=== PATIENT | female | born 1955 | race Hispanic/Latino ===

== ENCOUNTER → 2018-12-09 | Outpatient (CLI) | payer SELFPAY | END | disposition home or self-care (01) | LOC: RAH 08:57 | PROVIDERS: ATTEND Nurse Practitioner Family | DX: N60.11 Diffuse cystic mastopathy of right breast (principal); N60.12 Diffuse cystic mastopathy of left breast | CPT/HCPCS: 76641; 77066 ==

== ENCOUNTER → 2020-05-10 | Outpatient (CLI) | payer SELFPAY | END | disposition home or self-care (01) | LOC: RAH 07:38 | PROVIDERS: ATTEND Nurse Practitioner Family | DX: N60.01 Solitary cyst of right breast (principal); N60.02 Solitary cyst of left breast; N60.19 Diffuse cystic mastopathy of unspecified breast | CPT/HCPCS: 76641; 77066 ==

== ENCOUNTER → 2022-05-02 | Outpatient (CLI) | payer MEDICARE | END | disposition home or self-care (01) | LOC: RAH 13:26 | PROVIDERS: ATTEND Nurse Practitioner Family | DX: R92.8 Other abnormal and inconclusive findings on diagnostic imaging of breast (principal); N60.19 Diffuse cystic mastopathy of unspecified breast; N64.4 Mastodynia | CPT/HCPCS: 77066 ==

== ENCOUNTER → 2022-10-17 | Outpatient (CLI) | payer MEDICARE | END | disposition home or self-care (01) | LOC: RAH 07:47 | PROVIDERS: ATTEND Nurse Practitioner Family | DX: N60.02 Solitary cyst of left breast (principal); N60.01 Solitary cyst of right breast; N64.4 Mastodynia ==

== ENCOUNTER → 2023-05-05 | Outpatient (CLI) | payer MEDICARE | END | disposition home or self-care (01) | LOC: RAH 10:48 | PROVIDERS: ATTEND Nurse Practitioner Family | DX: N60.01 Solitary cyst of right breast (principal); N60.02 Solitary cyst of left breast; R92.2 Inconclusive mammogram; N60.42 Mammary duct ectasia of left breast; N64.4 Mastodynia; N60.19 Diffuse cystic mastopathy of unspecified breast | CPT/HCPCS: 77066 ==

== ENCOUNTER → 2023-06-09 | Outpatient (CLI) | payer MEDICARE | END | disposition home or self-care (01) | LOC: RAH 13:44 | PROVIDERS: ATTEND Nurse Practitioner Family | DX: M81.0 Age-related osteoporosis without current pathological fracture (principal); N95.9 Unspecified menopausal and perimenopausal disorder; M85.88 Other specified disorders of bone density and structure, other site | CPT/HCPCS: 77080 ==

== ENCOUNTER → 2023-08-26 | Outpatient (CLI) | payer OTHER | END | disposition home or self-care (01) | LOC: OIH 11:19 | PROVIDERS: ATTEND Nurse Practitioner Family | DX: Z13.6 Encounter for screening for cardiovascular disorders (principal) | CPT/HCPCS: 75571 ==

== ENCOUNTER → 2024-05-26 | Outpatient (CLI) | payer MEDICARE ==
--- NOTE | 2024-05-27 08:35 | HMCIMG ---
Diagnostic mammogram and bilateral breast ultrasound. HISTORY: DIFFUSE CYSTIC MASTOPATHY,MASTODYNIA COMPARISON: 05/05/2023 TECHNIQUE: Bilateral digital diagnostic mammogram was performed. No additional views were obtained. FINDINGS: Parenchymal density: The breasts are heterogeneously dense, which may obscure small masses. There are no focal masses. There is no evidence of nipple retraction or skin thickening. Bilateral breast ultrasound was performed. Right breast parenchyma appears normal. There are 2 cysts on the left, these include a 1.8 cm cyst in the 1:00 position and a 1 cm cyst in the 2:00 position. There are no solid nodules in either breast. There are no areas of architectural distortion or acoustical shadowing. There are some normal-appearing lymph nodes in both axilla. IMPRESSION: 1. 2 small simple cyst left breast largest is in the 1:00 position measuring 1.8 x 1.9 cm. 2. Otherwise unremarkable bilateral mammogram with bilateral breast ultrasound. The patient was entered into a reminder system with a target due date for their next mammogram. BI-RADS CATEGORY 1: NEGATIVE Recommend monthly self breast exam as well as annual clinical examination. A negative x-ray should not delay biopsy if a dominant or clinically suspicious mass is present, since 8-10% of cancers are not identified by mammography. Dense breasts particularly, may obscure an underlying neoplasm. Some of these may be detected clinically and therefore, clinical examination is an essential part of breast evaluation.
== END | disposition home or self-care (01) ==
LOC: RAH 12:47
PROVIDERS: ATTEND Nurse Practitioner Family
DX: N60.02 Solitary cyst of left breast (principal); N64.4 Mastodynia; N60.19 Diffuse cystic mastopathy of unspecified breast; R92.30 Dense breasts, unspecified; N60.11 Diffuse cystic mastopathy of right breast; N60.12 Diffuse cystic mastopathy of left breast
CPT/HCPCS: 77066

== ENCOUNTER → 2025-05-31 | Outpatient (CLI) | payer MEDICARE ==
--- NOTE | 2025-05-31 15:35 | HMCIMG ---
BILATERAL BREAST ULTRASOUND: CLINICAL HISTORY: Mastodynia Finding: Real-time examination of the both breasts demonstrates very heterogeneous echotexture throughout both the breasts without evidence of focal solid mass.. There is cyst seen in both breasts in the right breast and retroareolar region is a cyst measuring 0.4 x 0.4 x 0.6 cm. In the left breast at 1:00 there is a cyst measuring 1.9 x 1.0 x 1.9 cm. The left breast has mild ductal ectasia. There is benign-appearing bilateral axillary lymph node on the right it measures 1.1 x 0.7 x 1.2 cm. On the left and measures 1.8 x 0.7 x 1.6 cm. IMPRESSION: Dense breast with fibrocystic changes. No solid hypoechoic masses seen. I would recommend annual mammography with tomography with bilateral breast sonogram. FINAL ASSESSMENT: ACR: BI-RAD- 2. Benign Finding.
--- NOTE | 2025-05-31 15:37 | HMCIMG ---
DIGITAL bilateral DIAGNOSTIC MAMMOGRAM Technique: The digital mammographic examination of both breasts in craniocaudal, mediolateral oblique views along with CAD was obtained. Ultrasound of both breasts were also obtained. History: This is a 70 years year-old female 2, para2 Ab0 . Patient has no family history of breast cancer. Patient has no complaint Reference:Prior mammogram from 05/26/2024, 05/05/2023 and 05/02/2022 are available for comparison.. Breast composition: Breast composition C: The breasts are heterogeneously dense, which may obscure small masses. Finding: The digital mammographic examination of both breasts in craniocaudal and mediolateral oblique view along with CAD demonstrates to be moderately heterogeneously nodular dense breasts. Ultrasound demonstrated fibrocystic changes.. There is no evidence of any dendritic mass, cluster microcalcification or architectural distortion. The retromammary fat appears to be normal. IMPRESSION: Unchanged from prior mammography. NO RADIOGRAPHIC EVIDENCE OF MALIGNANT CHANGES. WE WOULD RECOMMEND ANNUAL FOLLOW UP WITH TOMOSYNTHESIS UNLESS OTHERWISE CLINICALLY INDICATED. I would recommend annual bilateral breast sonogram due to moderately heterogeneously nodular dense breasts. FINAL ASSESSMENT: ACR: BI-RAD- 2. Benign Finding. NOTE: IF A WORK-UP OF THIS PATIENT LEADS TO A BIOPSY, PLEASE FORWARD A COPY OF THE PATHOLOGY REPORT TO OUR OFFICE REQUIRED BY [facility] APRIL 12, 1994. A NEGATIVE MAMMOGRAM SHOULD NOT PRECLUDE BIOPSY OF A CLINICALLY PALPABLE SUSPICIOUS MASS, 10% OF BREAST CANCERS ARE MAMMOGRAPHICALLY OCCULT. THIS MAMMOGRAPHY FACILITY IS FULLY ACCREDITED BY THE FOOD AND DRUG ADMINISTRATION (FDA). THANK YOU FOR THIS REFERRAL.
== END | disposition home or self-care (01) ==
LOC: RAH 13:35
PROVIDERS: ATTEND Nurse Practitioner Family
DX: N60.01 Solitary cyst of right breast (principal); N60.02 Solitary cyst of left breast; N60.11 Diffuse cystic mastopathy of right breast; N60.12 Diffuse cystic mastopathy of left breast; N60.42 Mammary duct ectasia of left breast; R92.333 Mammographic heterogeneous density, bilateral breasts; R59.0 Localized enlarged lymph nodes; N64.4 Mastodynia
CPT/HCPCS: 77066